=== PATIENT | female | born 1995 | race Caucasian/White ===

== ENCOUNTER 2017-07-01 10:05 | Emergency (ER) | payer OTHER ==
[2017-07-01] MEDS ORDERED: ONDANSETRON 4 MG TAB.RAPDIS PO ONE (10:39)
--- NOTE | 2017-07-01 10:40 | ER Document Report ---
ED Medical Screen (RME) - General Chief Complaint: Nausea Stated Complaint: NAUSEA Time Seen by Provider: 07/01/17 10:34 TRAVEL OUTSIDE OF THE [place] IN LAST 30 DAYS: No - HPI Notes: this provider evaluated by this provider. A 22 yr old female presents today with right upper quadran, nausea umbilical and right lower quadrant abdominal pain that started 1 day ago. Patient states that she has been constipated 4 days, states she had a loose stool with her last bowel movement. Reports she is passing flatus. Patient states she does have a history of abdominal pain, was worked up for a cholelithiasis in the past. Denies any fevers or chills. Patient is eating and drinking but not as much as she typically does per her mother. Patient's last menstrual period was 2 months ago, patiently sexually active and is not using any form of control. Patient reports that she is actively trying to become . Denies any chest pain, shortness of breath , vomiting, diarrhea, vaginal or pelvic pain, blurred vision, double vision, loss of vision. Denies any rashes. Denies any recent travel, new foods or new medications. patient states he only takes a daily vitamin. I have greeted and performed a rapid initial assessment of this patient. A comprehensive ED assessment and evaluation of the patient, analysis of test results and completion of medical decision making process will be conducted by an additional ED providers. . 07/01/17 10:44 - Related Data Allergies/Adverse Reactions: No Known Allergies Allergy (Verified 07/01/17 10:06) Past Medical History - Social History Frequency of alcohol use: None Drug Abuse: None Renal/ Medical History: Denies: Hx Peritoneal Dialysis Physical Exam - Vital signs Vitals: Temp Pulse Resp BP Pulse Ox 98.5 F 58 L 16 95/58 L 100 07/01/17 10:14 07/01/17 10:14 07/01/17 10:14 07/01/17 10:14 07/01/17 10:14 Course - Vital Signs Vital signs: Temp Pulse Resp BP Pulse Ox 98.5 F 58 L 16 95/58 L 100 07/01/17 10:14 07/01/17 10:14 07/01/17 10:14 07/01/17 10:14 07/01/17 10:14
[2017-07-01] MEDS ORDERED: NORMAL SALINE 1000 ML 1,000 ML IV ONE (11:17)
[2017-07-01 11:29] LABS: ABSOLUTE LYMPHOCYTES (AUTO) 2.1 10^3/uL (0.5-4.7); ABSOLUTE MONOCYTES (AUTO) 0.5 10^3/uL (0.1-1.4); ABSOLUTE NEUT (AUTO) 5.8 10^3/uL (1.7-8.2); BASOPHILS % (AUTO) 0.5 % (0-2); EOSINOPHILS % (AUTO) 0.1 % (0-6); HEMATOCRIT 39.3 % (36.0-47.0); HEMOGLOBIN 13.2 g/dL (12.0-15.5); LYMPHOCYTES % (AUTO) 24.4 % (13-45); MEAN CORPUSCULAR HGB CONC 33.5 g/dL (32.0-36.0); MEAN CORPUSCULAR VOLUME 92 fl (80-97); MONOCYTES % (AUTO) 6.2 % (3-13); PLATELET COUNT 250 10^3/uL (150-450); RED BLOOD COUNT 4.26 10^6/uL (3.72-5.28); RED CELL DISTRIBUTION WIDTH 14.5 % (11.5-14.0); SEGMENTED NEUTROPHILS % (AUTO) 68.8 % (42-78); TOTAL CELLS COUNTED % (AUTO) 100 %; WHITE BLOOD COUNT 8.5 10^3/uL (4.0-10.5)
[2017-07-01 11:36] LABS: APPEARANCE,URINE CLEAR; BILIRUBIN,URINE NEGATIVE (NEGATIVE); COLOR,URINE COLORLESS; GLUCOSE, URINE NEGATIVE (NEGATIVE); KETONES,URINE NEGATIVE (NEGATIVE); LEUKOCYTE ESTERASE,URINE TRACE (NEGATIVE); NITRITE,URINE NEGATIVE (NEGATIVE); PROTEIN,URINE NEGATIVE (NEGATIVE); URINE SPECIFIC GRAVITY 1.003; UROBILINOGEN,URINE NEGATIVE mg/dL (<2.0)
[2017-07-01 11:51] LABS: ALANINE AMINOTRANSFERASE 51 U/L (9-52); ALBUMIN 5.1 g/dL (3.5-5.0); ALKALINE PHOSPHATASE 49 U/L (38-126); AMYLASE 162 U/L (30-110); ANION GAP 14 (5-19); ASPARTATE AMINO TRANSFERASE 39 U/L (14-36); BILIRUBIN,DIRECT 0.2 mg/dL (0.0-0.4); BILIRUBIN,TOTAL 0.5 mg/dL (0.2-1.3); BLOOD UREA NITROGEN 25 mg/dL (7-20); CALCIUM 10.8 mg/dL (8.4-10.2); CARBON DIOXIDE 29 mmol/L (22-30); CHLORIDE 98 mmol/L (98-107); GLUCOSE 68 mg/dL (75-110); LIPASE 394.1 U/L (23-300); POTASSIUM 4.4 mmol/L (3.6-5.0); SODIUM 141.2 mmol/L (137-145); TOTAL PROTEIN 8.1 g/dL (6.3-8.2)
--- NOTE | 2017-07-01 13:04 | RADIOLOGY REPORT (SQ) ---
EXAM DESCRIPTION: U/S ABDOMEN COMPLETE W/O DOP COMPLETED DATE/TIME: 07/01/2017 12:48 pm REASON FOR STUDY: RUQ, umbilical pain, RLQ pain x 2 days COMPARISON: None. TECHNIQUE: Dynamic and static grayscale images acquired of the abdomen and recorded on PACS. Pumao nitza selected color Doppler and spectral images recorded. LIMITATIONS: None. FINDINGS: PANCREAS: No masses. Visualized pancreatic duct normal caliber. LIVER: No masses. Echotexture normal. LIVER VASCULATURE: Normal blood flow is identified in the portal vein GALLBLADDER: No stones. Normal wall thickness. No pericholecystic fluid. ULTRASOUND-DETECTED TARIQ'S SIGN: Negative. INTRAHEPATIC DUCTS AND COMMON DUCT: CBD and intrahepatic ducts normal caliber. No filling defects. INFERIOR VENA CAVA: Normal flow. AORTA: No aneurysm. RIGHT KIDNEY: 8.9 cm in length. Normal echogenicity. No solid or suspicious masses. No hydrone phrosis. No calcifications. LEFT KIDNEY: 9 cm in length. Normal echogenicity. No solid or suspicious masses. No hydronephr osis. No calcifications. SPLEEN: Normal size. No solid masses. PERITONEAL AND PLEURAL SPACES: No ascites or effusions. OTHER: No other significant finding. IMPRESSION: NORMAL ABDOMINAL ULTRASOUND. TECHNICAL DOCUMENTATION: JOB ID: [id number] [employer]- All Rights Reserved
[2017-07-01 13:25] VITALS: BP 101/56
== END 2017-07-01 14:01 | disposition home or self-care (01) ==
LOC: ER 10:05
DX: R10.84 Generalized abdominal pain (principal); R74.8 Abnormal levels of other serum enzymes
CPT/HCPCS: 99284; 96360; 36415; 87086; 82150; 84702; 83690; 85025; 80053; 81001; 76700; S0119; J7030